=== PATIENT | male | born 1990 | race Two or more races ===

== ENCOUNTER 2021-11-27 00:32 | Emergency (ER) | payer OTHER ==
[~2021-11-27] VITALS: Ht 167.6 cm; Wt 68.2 kg
[2021-11-27 01:07] VITALS: BP 120/72
== END 2021-11-27 05:06 ==
LOC: EMS 00:34
DX: S92.002A Unspecified fracture of left calcaneus, initial encounter for closed fracture (principal); S32.019A Unspecified fracture of first lumbar vertebra, initial encounter for closed fracture; W19.XXXA Unspecified fall, initial encounter; Y93.89 Activity, other specified; Y92.89 Other specified places as the place of occurrence of the external cause; Y99.8 Other external cause status
CPT/HCPCS: 72100; 99284